=== PATIENT | male | born 1965 | race Caucasian/White ===

== ENCOUNTER 2020-03-12 16:06 | Outpatient (REF) | payer SELFPAY ==
[2020-03-12 17:26] LABS: SARS COV2 IgG Negative (Negative)
[2020-03-12 21:19] LABS: Cholesterol 212 mg/dL
== END 2020-03-12 16:07 | disposition home or self-care (01) ==
LOC: HO.LNC 16:06
PROVIDERS: Visit Provider Pathology Anatomic Pathology & Clinical Pathology
DX: Z13.89 Encounter for screening for other disorder (principal)
CPT/HCPCS: 36415; 82465; 86769

== ENCOUNTER → 2024-10-03 23:59 | Outpatient (BNV) | payer MEDICAID, SELFPAY | PROVIDERS: Visit Provider Psychiatry & Neurology Neurology | DX: G56.22 Lesion of ulnar nerve, left upper limb (principal); G56.02 Carpal tunnel syndrome, left upper limb; G62.89 Other specified polyneuropathies | CPT/HCPCS: 95886; 95913 ==